=== PATIENT | female | born 2000 | race Caucasian/White ===

== ENCOUNTER 2020-11-22 12:48 | Emergency (ER) | payer OTHER, SELFPAY | END 2020-11-22 14:18 | disposition left against medical advice (07) | LOC: HO.ED 14:13 | PROVIDERS: Emergency Provider Emergency Medicine | DX: R22.1 Localized swelling, mass and lump, neck (principal) ==

== ENCOUNTER 2020-12-24 10:35 | Emergency (ER) | payer OTHER, SELFPAY ==
--- NOTE | ~2020-12-24 | US_ITS ---
EXAMINATION: US OBSTETRICAL ULTRASOUND CLINICAL INFORMATION: Early 4-6 weeks with pelvic pain and spotting. COMPARISON: None. LMP: 11/15/2020. Gestational age by maternal dates is 5 weeks 4 days. Estimated date of delivery by maternal dates is 08/22/2021. TECHNIQUE: Ultrasound of the maternal pelvis is performed using transabdominal and transvaginal transducers. Transvaginal imaging is performed due to inadequate visualization transabdominally. M-mode Doppler is also performed. FINDINGS: There is a single intrauterine gestational sac. There is no yolk sac or pole demonstrated at this time. No subchorionic hemorrhage or hematoma. The average sac dimension is 0.8 cm (5 weeks 3 days size). MATERNAL ADNEXA: The right maternal ovary measures 4.4 x 2.5 x 2.9 cm. There is an intraovarian corpus luteum cyst measuring 2.2 x 1.4 x 1.9 cm with some scattered avascular internal stranding. There is lobulated contour to the ovary opposite the corpus luteum. The ovarian parenchyma appears normal with scattered normal follicles and no solid mass. The left maternal ovary measures 2.5 x 2.0 x 2.4 cm. There is trace fluid cul-de-sac. No pelvic ascites. US/US OB pelvic and transvaginal IMPRESSION: 1. Single intrauterine gestational sac, 0.8 cm average dimension (5 weeks 3 days). 2. No visible yolk sac or embryo at this time. No subchorionic hemorrhage. 3. Small right ovarian corpus luteum 2 cm. 4. Trace fluid cul-de-sac. Otherwise, no ascites.
[2020-12-24 11:21] VITALS: BP 115/62; PULSE 70; RESP 16; TEMP 36.4; O2SAT 100; BMI 29.2
[2020-12-24 11:37] LABS: Glucose Urine UA NEG (NEG); Leukocyte Esterase Urine NEG (NEG); Nitrite Urine NEG (NEG); PH 5.5 (5.0-8.0); Specific Gravity - Urine 1.025 (1.005-1.025); Urine Blood NEG (NEG); Urine Ketones NEG (NEG); Urine Protein NEG (NEG-TRACE)
[2020-12-24 11:39] LABS: Appearance Urine CLEAR; Color Urine YELLOW; UPreg QC Valid YES; Urine Pregnancy POSITIVE (NEGATIVE)
--- NOTE | 2020-12-24 11:48 | ED.PREGNANCY ---
HPI - General Chief complaint: Vaginal Bleeding Stated complaint: cramps, spotting, Time Seen by Provider: 12/24/20 11:47 Source: patient Mode of arrival: ambulatory Limitations: no limitations History of Present Illness HPI Narrative: G1 D = LMP 4/2 comes in with weekly positive recent test noted some lower abdominal cramping and spotting no sig pad use, no clots Complaint: vaginal bleeding Onset (ago): hour(s) (today 3am) Pain Consistency: intermittent Location: pelvis Severity: mild Quality: Cramping Relieving factors: none Exacerbating factors: none Associated symptoms: vaginal bleeding (scant spotting) Vaginal bleeding: light Related Data Allergies Allergy/AdvReac Type Severity Reaction Status Date / Time No Known Allergies Allergy Unverified 05/02/20 16:37 Review of Systems Review of Systems: Constitutional : No Fever, No Chills ENT/Mouth : No sore throat, No Rhinorrhea Eyes: No Eye Pain, No Redness Cardiovascular : No Chest Pain, No SOB Respiratory : No Cough, No Sputum, No Wheezing Gastrointestinal : no Nausea, No Vomiting, No Diarrhea, positive abdominal pain, Genitourinary : positive irregular bleeding, No Dysuria, No Urinary Frequency, positive pelvic pain Musculoskeletal : No Myalgias Skin : No rash Neuro : No Weakness, No Headache Psych : No Anxiety/Panic, No Depression Heme/Lymph: No bruising, No Lymphadenopathy Endocrine : No Polyuria, No Polydipsia All other systems reviewed and are negative [facility] Past Medical History Attestation statement: The following information was validated with the patient. Medical History No known health problems Social History Social History (Updated 12/24/20 @ 12:10 by Leilani Hernandez DO) Alcohol intake: never Smoking Status: Never smoker Use of substances other than those prescribed or required for medical reasons: No Advance Directives: No Advance Directives Information Provided: No Patient : Yes Physical Exam Vital Signs: Vital Signs: Last Vital Signs Temp 97.6 F 12/24/20 11:21 Pulse 81 12/24/20 12:15 Resp 16 12/24/20 12:15 BP 116/64 12/24/20 12:15 Pulse Ox 99 12/24/20 12:15 Body Mass Index 29.2 Appearance: Alert. Oriented X3. No acute distress. Eyes: Pupils equal, round and reactive to light. ENT: Pharynx normal. Neck: Normal inspection. Neck supple. CVS: Normal heart rate and rhythm. Pulses normal. Respiratory: No respiratory distress. Breath sounds normal. Abdomen: Soft and mild suprapubic ttp : os closed no sig bleeding noted Skin: Skin warm and dry. Normal skin color. Normal skin turgor. Extremities: No lower extremity edema. No calf ttp Neuro: Oriented X 3. No motor deficit. No sensory deficit. Course Course Course Narrative: Rh positive, IUP, H/H stable, quant stable will refer her to OB and repeat studies in 2 days, pelvic rest MDM - OB/Uterine Contractions MDM Narrative Medical decision making narrative: 20 yo female G1 D=LMP 4/2 here with spotting and cramping will need UA, STI swabs, hcg and RH status - possible US pending to r/o ectopic, dispo per results and findings. Lab Data Result diagrams: 12/24/20 12:10 12/24/20 12:10 Labs: Lab Results 12/24/20 12/24/20 12/24/20 Range/Units 11:28 11:28 12:10 WBC 10.2 (4.8-10.8) X10*3/uL RBC 4.36 (4.20-5.50) X10*6/uL Hgb 13.3 (12.0-16.0) g/dl Hct 40.1 (37-47) % MCV 92.0 (80-98) fL MCH 30.5 (27.0-33.0) pg MCHC 33.2 (31.0-35.0) g/dl RDW 12.6 (11.0-16.0) % Plt Count 312 (160-400) X10*3/uL MPV 10.0 (9.4-12.3) fL Immature Gran % (Auto) 0.2 (0.0-0.4) % Neut % (Auto) 72.2 (45-73) % Lymph % (Auto) 18.2 L (20-40) % [place] % (Auto) 8.3 (2-11) % Eos % (Auto) 0.8 (0-4) % Baso % (Auto) 0.3 (0-2) % Lymph # (Auto) 1.9 (1.2-4.9) X10*3/uL [place] # (Auto) 0.9 (0.1-1.2) X10*3/uL Eos # (Auto) 0.1 (0.0-0.4) X10*3/uL Baso # (Auto) 0.0 (0.0-0.2) X10*3/uL Abs Immat Gran (auto) 0.02 (0.00-0.03) X10*3/uL Absolute Neuts (auto) 7.4 (2.0-8.3) X10*3/uL Absolute Nucleated RBC 0.000 (0.0-0.012) X10*3/uL Nucleated RBC % (auto) 0.0 (0.0-0.2) /100WBC Hold Blue Top Sodium (135-145) mmol/L Potassium (3.3-5.1) mmol/L Chloride (96-108) mmol/L Carbon Dioxide (22-29) mmol/L Anion Gap (12-20) BUN (9-16) mg/dL Creatinine (0.5-1.4) mg/dL Estim Creat Clear Calc Estimated GFR Random Glucose (60-115) mg/dL Calcium (8.4-10.2) mg/dL Beta HCG, Quant mIU/mL Urine Color YELLOW Urine Appearance CLEAR Urine pH 5.5 (5.0-8.0) Ur Specific [place] 1.025 (1.005-1.025) Urine Protein NEG (NEG-TRACE) MG/DL Urine Glucose (UA) NEG (NEG) MG/DL Urine Ketones NEG (NEG) MG/DL Urine Blood NEG (NEG) Urine Nitrite NEG (NEG) Ur Leukocyte Esterase NEG (NEG) Urine Test POSITIVE H (NEGATIVE) Blood Type 12/24/20 12/24/20 12/24/20 Range/Units 12:10 12:10 12:10 WBC (4.8-10.8) X10*3/uL RBC (4.20-5.50) X10*6/uL Hgb (12.0-16.0) g/dl Hct (37-47) % MCV (80-98) fL MCH (27.0-33.0) pg MCHC (31.0-35.0) g/dl RDW (11.0-16.0) % Plt Count (160-400) X10*3/uL MPV (9.4-12.3) fL Immature Gran % (Auto) (0.0-0.4) % Neut % (Auto) (45-73) % Lymph % (Auto) (20-40) % [place] % (Auto) (2-11) % Eos % (Auto) (0-4) % Baso % (Auto) (0-2) % Lymph # (Auto) (1.2-4.9) X10*3/uL [place] # (Auto) (0.1-1.2) X10*3/uL Eos # (Auto) (0.0-0.4) X10*3/uL Baso # (Auto) (0.0-0.2) X10*3/uL Abs Immat Gran (auto) (0.00-0.03) X10*3/uL Absolute Neuts (auto) (2.0-8.3) X10*3/uL Absolute Nucleated RBC (0.0-0.012) X10*3/uL Nucleated RBC % (auto) (0.0-0.2) /100WBC Hold Blue Top SEE NOTE Sodium 139 (135-145) mmol/L Potassium 4.0 (3.3-5.1) mmol/L Chloride 108 (96-108) mmol/L Carbon Dioxide 24 (22-29) mmol/L Anion Gap 11 L (12-20) BUN 8 L (9-16) mg/dL Creatinine 0.70 (0.5-1.4) mg/dL Estim Creat Clear Calc 113.0 Estimated GFR > 60 Random Glucose 79 (60-115) mg/dL Calcium 9.7 (8.4-10.2) mg/dL Beta HCG, Quant 7294 mIU/mL Urine Color Urine Appearance Urine pH (5.0-8.0) Ur Specific [place] (1.005-1.025) Urine Protein (NEG-TRACE) MG/DL Urine Glucose (UA) (NEG) MG/DL Urine Ketones (NEG) MG/DL Urine Blood (NEG) Urine Nitrite (NEG) Ur Leukocyte Esterase (NEG) Urine Test (NEGATIVE) Blood Type A Positive Discharge Plan Discharge Clinical Impression: Threatened Patient Disposition: Home, Self-Care Instructions: Threatened Miscarriage (ED) Additional Instructions: return to ED for any worsening symptoms or concerns repeat hcq in 2 days, blood test with OB, no sexual intercourse x 1 week Referrals: Kendra Shell MD [Physician] - 2 days Stand Alone Forms: Work/School Release
[2020-12-24] MEDS: Acetaminophen 325 MG TABLET 650 MG PO (12:07)
[2020-12-24 12:15] VITALS: BP 116/64; PULSE 81; RESP 16; O2SAT 99
[2020-12-24 12:24] LABS: MANUAL DIFF FLAG NO
[2020-12-24 12:28] LABS: Basophils Percent Auto 0.3 % (0-2); Eosinophils Absolute Auto 0.1 X10*3/uL (0.0-0.4); Eosinophils Percent Auto 0.8 % (0-4); Hematocrit 40.1 % (37-47); Hemoglobin 13.3 g/dl (12.0-16.0); Imm Gran Abs Auto 0.02 X10*3/uL (0.00-0.03); Imm Gran Pct Auto 0.2 % (0.0-0.4); Lymphocytes Absolute Auto 1.9 X10*3/uL (1.2-4.9); Lymphocytes Percent Auto 18.2 % (20-40); Mean Corpuscular HGB Conc 33.2 g/dl (31.0-35.0); Mean Corpuscular Hemoglobin 30.5 pg (27.0-33.0); Monocytes Absolute Auto 0.9 X10*3/uL (0.1-1.2); Monocytes Percent Auto 8.3 % (2-11); Neutrophils Absolute Auto 7.4 X10*3/uL (2.0-8.3); Neutrophils Percent Auto 72.2 % (45-73); Platelet Count 312 X10*3/uL (160-400); Red Blood Count 4.36 X10*6/uL (4.20-5.50); Red Cell Distribution Width 12.6 % (11.0-16.0); White Blood Count 10.2 X10*3/uL (4.8-10.8)
[2020-12-24 12:47] LABS: Anion Gap 11 (12-20); Blood Urea Nitrogen 8 mg/dL (9-16); Calcium 9.7 mg/dL (8.4-10.2); Carbon Dioxide 24 mmol/L (22-29); Chloride 108 mmol/L (96-108); Estimated Glomerular Filt Rate > 60; Glucose Random 79 mg/dL (60-115); Sodium 139 mmol/L (135-145)
[2020-12-24 12:57] LABS: HCG Quantitative 7294 mIU/mL
[2020-12-24 14:58] LABS: CT PCR NOT DETECTED (Not Detect.); NG PCR NOT DETECTED (Not Detect.)
== END 2020-12-24 14:49 | disposition home or self-care (01) ==
PROVIDERS: Emergency Provider Emergency Medicine
DX: O20.0 Threatened abortion (principal); O34.81 Maternal care for other abnormalities of pelvic organs, first trimester; N83.11 Corpus luteum cyst of right ovary; Z3A.08 8 weeks gestation of pregnancy
CPT/HCPCS: 36415; 76801; 76817; 80048; 81003; 81025; 84702; 85025; 86900; 86901; 87491; 87591; 99284; 99285

== ENCOUNTER 2020-12-27 10:41 | Outpatient (REF) | payer OTHER, SELFPAY ==
--- NOTE | ~2020-12-27 | US_ITS ---
EXAMINATION: OBSTETRICAL ULTRASOUND, FIRST TRIMESTER HISTORY: 20-year-old at 5.3 weeks of gestation Viability LMP: 11/19/2020 COMPARISON: 12/24/2020 TECHNIQUE: Real time transabdominal imaging with color and M-mode Doppler. Transvaginal ultrasound was performed using an endovaginal probe. FINDINGS: Intrauterine gestational sac with the mean sac diameter of 1.3 cm is noted. This corresponds to to 6 weeks 1 day of gestation. A normal-appearing yolk seen. Embryonic pole is not yet visible. This can be consistent with early gestational age. Both maternal ovaries are seen and appear normal. No free fluid in the cul-de-sac. GESTATIONAL AGE: 1. GA from LMP: 5.3 wks 2. GA from AUA: 6.1 wks ESTIMATED DATE OF DELIVERY: 1. MARYSE from LMP: 08/26/2021 2. MARYSE from AUA: 08/21/2021 US/US OB pelvic and transvaginal IMPRESSION: 1. Intrauterine gestational sac with a mean sac diameter corresponding to 6.1 weeks of gestation. Next 2. Normal appearing yolk sac. However no embryonic pole was seen. Thank you very much for this referral.
== END 2020-12-27 10:42 | disposition home or self-care (01) ==
LOC: HO.US 10:41
PROVIDERS: Visit Provider Obstetrics & Gynecology
DX: O20.0 Threatened abortion (principal); Z3A.01 Less than 8 weeks gestation of pregnancy
CPT/HCPCS: 76801; 76817; 99212

== ENCOUNTER 2020-12-27 15:45 | Outpatient (REF) | payer OTHER, SELFPAY ==
[2020-12-28 01:03] LABS: CT PCR NOT DETECTED (Not Detect.); NG PCR NOT DETECTED (Not Detect.)
== END 2020-12-27 15:46 | disposition home or self-care (01) ==
LOC: HO.LAB 15:45
PROVIDERS: Visit Provider Obstetrics & Gynecology
DX: O20.0 Threatened abortion (principal)
CPT/HCPCS: 87491; 87591

== ENCOUNTER 2021-01-17 10:10 | Outpatient (REF) | payer OTHER, SELFPAY ==
--- NOTE | ~2021-01-17 | US_ITS ---
EXAMINATION: OBSTETRICAL ULTRASOUND, FIRST TRIMESTER HISTORY: 21-year-old at the approximately 8.3 weeks of gestation Threatened AB LMP: 11/19/2020 COMPARISON: 12/27/2020 TECHNIQUE: Real time transabdominal imaging with color and M-mode Doppler. FINDINGS: A single, live IUP CRL of 21.6 mm c/w 8.6wks is noted. Heart Rate: 172 beats per minute. Both maternal ovaries are seen and appear normal. GESTATIONAL AGE: 1. GA from LMP: 8.3 wks 2. GA from AUA: 8.6 wks ESTIMATED DATE OF DELIVERY: 1. MARYSE from LMP: 08/26/2021 2. MARYSE from AUA: 08/23/2021 US/US OB <= 14 weeks fetus IMPRESSION: 1. A single live IUP 2. CRL confirms her LMP gestational age of 8.3 weeks. The best MARYSE appears to be 08/26/2021. 3. No sonographic evidence of subchorionic hematoma. Discussion: No specific ultrasound followup appears needed at this time. The patient was advised that ultrasound cannot guarantee the of a normal infant. Thank you very much for this referral. This note was generated with a voice recognition program. Please excuse any errors which may have been overlooked during my review of this note. Sometimes these errors may affect the content or meaning of a given sentence.
== END 2021-01-17 10:11 | disposition home or self-care (01) ==
LOC: HO.US 10:10
PROVIDERS: Visit Provider Obstetrics & Gynecology
DX: O20.0 Threatened abortion (principal)
CPT/HCPCS: 76801

== ENCOUNTER → 2021-01-20 11:25 | Outpatient (BNVA) | payer OTHER, SELFPAY | PROVIDERS: Visit Provider Obstetrics & Gynecology ==

== ENCOUNTER 2022-01-31 19:52 | Emergency (ER) | payer OTHER, SELFPAY ==
[2022-01-31 19:53] VITALS: BP 134/70; PULSE 115; RESP 20; TEMP 36.9; O2SAT 97; BMI 29.2
--- NOTE | 2022-01-31 23:12 | ED_ITS ---
HPI - General Adult General Chief complaint: General Medical Stated complaint: discharge, yeast infection Time Seen by Provider: 01/31/22 23:01 Source: patient Mode of arrival: ambulatory Limitations: no limitations History of Present Illness HPI narrative: This a 22-year-old female here with 1 week of thick white vaginal discharge. Patient has no pelvic pain, vomiting, fevers, urinary symptoms. Patient has his tory of yeast infection and states this feels similar. She would like to be tested for STDs however Related Data Home Medications Medication Instructions Recorded Confirmed vitamin with calcium 1 tab PO DAILY 01/20/21 no.72-iron 27 mg-folic acid 1 mg tablet Previous Rx's Medication Instructions Recorded fluconazole 150 mg tablet 150 mg PO Q3D 2 doses #2 tabs 02/01/22 (Diflucan) Allergies Allergy/AdvReac Type Severity Reaction Status Date / Time No Known Allergies Allergy Verified 01/31/22 20:03 Review of Systems Review of Systems: Yes all other systems are reviewed and are negative Constitutional: Constitutional: Reports no additional constitutional complaints, Denies body ache(s), Denies chills, Denies fever(s), Denies headache(s) and Denies weakness Eyes: Eyes: Reports no additional eye complaints and Denies change in vision ENT: Reports system reviewed and no additional complaints, except as documented, Denies dizziness, Denies headache(s), Denies nasal congestion, Denies nasal discharge and Denies neck pain Cardiovascular: Cardiovascular: Reports no additional cardiovascular complaints, Denies chest pain, Denies leg edema and Denies dyspnea Respiratory: Respiratory: Reports no additional respiratory complaints, Denies cough and Denies dyspnea Gastrointestinal: Gastrointestinal: Reports no additional gastrointestinal complaints, Denies abdominal pain, Denies diarrhea, Denies nausea and Denies vomiting Genitourinary: Genitourinary: Reports no additional female genitourinary complaints, Denies urinary incontinence and Reports vaginal discharge Musculoskeletal: Musculoskeletal: Reports no additional musculoskeletal complaints, Denies back pain, Denies arthralgias, Denies joint swelling, Denies neck pain, Denies numbness and Denies tingling Integumentary/Breasts: Skin/Breast: Reports system reviewed and no additional complaints, except as docu and Denies rash Neurologic: Reports system reviewed and no additional complaints, except as documented, Denies dizziness, Denies headache(s), Denies numbness, Denies tingling and Denies weakness PMFSH Past Medical History Attestation statement: The following information was validated with the patient. Source: old records reviewed and nursing notes reviewed Medical History No known health problems Social History Social History Alcohol intake: never Advance Directives: No Advance Directives Information Provided: Yes Physical Exam ED Vital Signs: Vital Signs - 24 hr 01/31/22 19:53 Temperature 98.4 F Pulse Rate 115 H Respiratory Rate 20 Blood Pressure 134/70 Pulse Oximetry 97 Oxygen Delivery Method Room Air BMI result Body Mass Index 29.2 Const General: cooperative, healthy appearing, comfortable and no acute distress Orientation/consciousness: patient oriented x3 Limitations: no limitations HENMT Head: Yes normal to inspection Ears: hearing grossly normal bilaterally Eyes General: appearance normal, both eyes and all related structures Pupils: Equal, round and reactive pupils present Neck Neck: Yes normal visual inspection Chest Chest palpation & inspection: normal inspection of the chest Resp Effort & Inspection: normal respiratory effort Skin General skin exam: no rashes or lesions noted Neuro General: patient oriented x3 and moves all extremities Cranial nerves: Yes Equal, round and reactive pupils present Cognition (Neuro): normal cognition Course Course Course Narrative: UA shows no signs of infection. Additional testing is pending. Will treat patient for Maru. She declined a pelvic exam. Reviewed worrisome signs and symptoms of when to return to the emergency department. Comfortable discharge home. Medical Decision Making [facility] Narrative Medical decision making narrative: 22-year-old female here with vaginal discharge for 1 week with a history of yeast infections and states this feels similar. Would like STD testing. Will check UA, urine , bacterial vaginosis panel, CT NG Medical Records Medical records reviewed: Yes I reviewed the patient's medical records. Lab Data Lab results reviewed: Yes I reviewed the patient's lab results. Labs: Lab Results 01/31/22 01/31/22 Range/Units 23:51 23:51 Urine Color DK YELLOW Urine Appearance HAZY Urine pH 5.5 (5.0-8.0) Ur Specific [place] >= 1.030 H (1.005-1.025) Urine Protein 1+ H (NEG-TRACE) MG/DL Urine Glucose (UA) NEG (NEG) MG/DL Urine Ketones 15 (NEG) MG/DL Urine Blood NEG (NEG) Urine Nitrite NEG (NEG) Ur Leukocyte Esterase NEG (NEG) Urine RBC 0-2 (0) /HPF Urine WBC 0 (0-4) /HPF Ur Squamous Epith Cells 1+ /LPF Urine Bacteria 1+ /LPF Urine Mucus 4+ /LPF Urine Test NEGATIVE (NEGATIVE) Discharge Plan Discharge Clinical Impression: Yeast infection Patient Disposition: Home, Self-Care Instructions: Yeast Infection (ED) Prescriptions: New fluconazole [Diflucan] 150 mg tablet 150 mg PO Q3D Qty: 2 0RF Rx Instructions: may repeat second dose 72 hrs after first dose if symptoms persist No Action Vitamin Plus Low Iron 27 mg iron- 1 mg tablet 1 tab PO DAILY Referrals: Physician,Aracelis J [Primary Care Provider] - Discharge Date/Time: 02/01/22 00:24
[2022-01-31 23:57] LABS: Appearance Urine HAZY; Color Urine DK YELLOW; Glucose Urine UA NEG (NEG); Leukocyte Esterase Urine NEG (NEG); Nitrite Urine NEG (NEG); PH 5.5 (5.0-8.0); Specific Gravity - Urine >= 1.030 (1.005-1.025); UACC Culture Trigger NO; Urine Blood NEG (NEG); Urine Ketones 15 MG/DL (NEG); Urine Protein 1+ MG/DL (NEG-TRACE)
[2022-02-01 00:03] LABS: UPreg QC Valid YES; Urine Pregnancy NEGATIVE (NEGATIVE)
[2022-02-01 00:16] LABS: Bacteria Urine 1+ /LPF; Mucus Urine 4+ /LPF; RBC Urine 0-2 /HPF (0); Squamous Epithelial Cell Urine 1+ /LPF; WBC Urine 0 /HPF (0-4)
[2022-02-01 10:33] LABS: CT PCR DETECTED (Not Detect.); NG PCR DETECTED (Not Detect.)
[2022-02-01 11:59] LABS: BV Int Neg Control Negative (Negative); BV Int Pos Control Positive (Positive)
== END 2022-02-01 00:24 | disposition home or self-care (01) ==
PROVIDERS: Nurse Practitioner Family; Emergency Provider Emergency Medicine
DX: B37.9 Candidiasis, unspecified (principal); N89.8 Other specified noninflammatory disorders of vagina; Z79.899 Other long term (current) drug therapy
CPT/HCPCS: 81001; 81025; 87480; 87491; 87510; 87591; 87660; 99282; 99283

== ENCOUNTER 2022-02-04 09:32 | Emergency (ER) | payer OTHER, SELFPAY ==
[2022-02-04 09:50] VITALS: BP 112/44; PULSE 70; RESP 20; TEMP 36.5; O2SAT 98; BMI 30.2
--- NOTE | 2022-02-04 10:04 | ED_ITS ---
HPI - Recheck/Abnormal Lab/Rx General Chief Complaint: Recheck/Abnormal Lab/Rx Stated Complaint: STD Called by [facility] to come here Time Seen by Provider: 02/04/22 09:49 Source: patient Mode of arrival: ambulatory Limitations: no limitations History of Present Illness HPI narrative: 22-year-old female who was seen here on February 01. At that time there was concern for vaginitis with thick white vaginal discharge. She was also tested for STDs. She was not treated at that time for STDs. She was treated with Diflucan for vaginitis. She returns today as she is positive for both gonorrhea and chlamydia and needs treatment. She denies any fever, pelvic pain, vomiting. She is sexually active with 1 male partner. Related Data Home Medications Medication Instructions Recorded Confirmed vitamin with calcium 1 tab PO DAILY 01/20/21 no.72-iron 27 mg-folic acid 1 mg tablet Previous Rx's Medication Instructions Recorded fluconazole 150 mg tablet 150 mg PO Q3D 2 doses #2 tabs 02/01/22 (Diflucan) doxycycline monohydrate 100 mg 100 mg PO BID #14 tabs 02/04/22 tablet Allergies Allergy/AdvReac Type Severity Reaction Status Date / Time No Known Allergies Allergy Verified 01/31/22 20:03 Review of Systems Review of Systems: Yes all other systems are reviewed and are negative Constitutional: Constitutional: Reports no additional constitutional complaints, Denies body ache(s), Denies chills, Denies fever(s), Denies headache(s) and Denies weakness Eyes: Eyes: Reports no additional eye complaints and Denies change in vision ENT: Reports system reviewed and no additional complaints, except as documented, Denies dizziness, Denies headache(s), Denies nasal congestion, Denies nasal discharge and Denies neck pain Cardiovascular: Cardiovascular: Reports no additional cardiovascular complaints, Denies chest pain, Denies leg edema and Denies dyspnea Respiratory: Respiratory: Reports no additional respiratory complaints, Denies cough and Denies dyspnea Gastrointestinal: Gastrointestinal: Reports no additional gastrointestinal complaints, Denies abdominal pain, Denies diarrhea, Denies nausea and Denies vomiting Genitourinary: Genitourinary: Reports no additional female genitourinary complaints, Denies urinary incontinence and Reports vaginal discharge Musculoskeletal: Musculoskeletal: Reports no additional musculoskeletal complaints, Denies back pain, Denies arthralgias, Denies joint swelling, Denies neck pain, Denies numbness and Denies tingling Integumentary/Breasts: Skin/Breast: Reports system reviewed and no additional complaints, except as docu and Denies rash Neurologic: Reports system reviewed and no additional complaints, except as documented, Denies Abnormal speech present, Denies dizziness, Denies headache(s), Denies numbness, Denies tingling and Denies weakness PMF Past Medical History Attestation statement: The following information was validated with the patient. Source: old records reviewed and nursing notes reviewed Medical History No known health problems Social History Social History Alcohol intake: never Advance Directives: No Advance Directives Information Provided: Yes Physical Exam Vital Signs: Vital Signs: Last Vital Signs Temp 97.7 F 02/04/22 09:50 Pulse 70 02/04/22 09:50 Resp 20 02/04/22 09:50 BP 112/44 L 02/04/22 09:50 Pulse Ox 98 02/04/22 09:50 O2 Del Method 02/04/22 09:50 BMI result Body Mass Index 30.2 Const: General: cooperative, healthy appearing, comfortable and no acute distress Orientation/consciousness: patient oriented x3 Limitations: no limitations HEENT: Head: Yes normal to inspection Ears: hearing grossly normal bilaterally General nose exam: Normal external nose present Face and sinus: Yes normal facial exam Mouth: Normal oral and palatal mucosa present Throat: Yes posterior oropharynx normal Eyes: General: appearance normal, both eyes and all related structures Pupils: Equal, round and reactive pupils present Neck: Neck: Yes normal visual inspection Chest: Chest palpation & inspection: normal inspection of the chest Resp: Effort & Inspection: normal respiratory effort Auscultation: clear to auscultation bilaterally Cardio: Rate: regular rate Rhythm: regular rhythm Peripheral pulses: Peripheral pulses 2+ throughout GI: Inspection: Yes normal to inspection Palpation (GI): Soft to palpation and nontender Auscultation: normal bowel sounds Back/Spine/Pelvis: Thoracic/Lumbar Spine: thoracic and lumbar spine normal to inspection Skin: General skin exam: no rashes or lesions noted Neuro: General: patient oriented x3, no focal motor deficits and normal sensation to monofilament Cranial nerves: Yes Equal, round and reactive pupils present Cognition (Neuro): normal cognition Speech: No Abnormal speech present Gait exam (Neuro): Normal gait present Motor exam (neuro): 5/5 motor strength present throughout Extrem: General: Yes normal to inspection Course Course Course Narrative: Patient received ceftriaxone 500 mg IM while she was in the emergency department. Will send home with doxycycline for 7 days. Recommended retesting in 7 days after treatment for resolution. The state form was faxed for gonorrhea. Patient was informed to notify her sexual partners. Reviewed worrisome signs and symptoms of when to return to the emergency department. Comfortable discharge home. MDM - Recheck/Abnormal Lab/Rx MDM Narrative Medical decision making narrative: 22-year-old female here with known positive culture for gonorrhea and chlamydia seeking testing. She has complaints of vaginal discharge but no other complaints. Patient will be given ceftriaxone 500 mg IM and sent home with course of doxycycline. Low concern for PID or TOA with no reports of pelvic pain or fever She is aware that her partner needs to also be tested and treated Medical Records Attestation: I reviewed the patient's medical records. Lab Data Attestation: I reviewed the patient's lab results. Discharge Plan Discharge Clinical Impression: Gonorrhea, Chlamydia Patient Disposition: Home, Self-Care Instructions: Sexually Transmitted Diseases (ED), Gonorrhea (ED) Additional Instructions: You are were positive for both gonorrhea and chlamydia. You were treated prophylactically with an injection while you are here in the emergency department. We also also sending you home with a course of antibiotics. You should follow-up with [facility] after you complete the course of antibiotics to have your urine retested. You should inform all sexual partners that they may also be treated and tested Use condoms until completion of antibiotics and being retested Prescriptions: New doxycycline monohydrate 100 mg tablet 100 mg PO BID Qty: 14 0RF No Action fluconazole [Diflucan] 150 mg tablet 150 mg PO Q3D Qty: 2 0RF Rx Instructions: may repeat second dose 72 hrs after first dose if symptoms persist Vitamin Plus Low Iron 27 mg iron- 1 mg tablet 1 tab PO DAILY Referrals: Physician,None [Primary Care Provider] - Interventions: ED Discharge Assessment Last Done: 02/04/22 10:45 Discharge Date/Time: 02/04/22 10:48
[2022-02-04] MEDS: cefTRIAXone sodium 500 MG, Lidocaine HCl 1 % MPF 1 ML IM (10:10)
== END 2022-02-04 10:48 | disposition home or self-care (01) ==
PROVIDERS: Emergency Provider Emergency Medicine
DX: A54.9 Gonococcal infection, unspecified (principal); A74.9 Chlamydial infection, unspecified; R79.89 Other specified abnormal findings of blood chemistry; N76.0 Acute vaginitis; Z79.899 Other long term (current) drug therapy
CPT/HCPCS: 96372; 99283; 99284; J0696

== ENCOUNTER 2022-03-14 19:44 | Emergency (ER) | payer OTHER, SELFPAY ==
--- NOTE | ~2022-03-14 | CT_ITS ---
EXAMINATION: CT ABDOMEN AND PELVIS WITHOUT CONTRAST CLINICAL INFORMATION: Lower abdominal pain COMPARISON: None TECHNIQUE: Multidetector volumetric imaging was performed from the superior aspect of the liver through the pubic symphysis. Sagittal and coronal reformatted images were obtained on the technologist's workstation. This CT examination was performed using dose optimization techniques as appropriate, variously including the following: *Automated exposure control *Adjustment of mA and/or kV according to patient size (this includes techniques or standardized protocols for targeted exams where dose is matched to indication/reason for exam; i.e. extremities or head) *Use of iterative reconstruction technique DLP: 470 mGy-cm FINDINGS: LUNG BASES: The visualized lung bases are unremarkable. LIVER, GALLBLADDER, AND BILIARY TREE: The liver is normal in size, shape, and attenuation. No focal hepatic lesion or biliary ductal dilatation is present. Gallbladder unremarkable. PANCREAS: Unremarkable. SPLEEN: Unremarkable. ADRENAL GLANDS: Unremarkable. KIDNEYS AND URETERS: The kidneys are normal in size, shape, and attenuation. No hydronephrosis, hydroureter, or calculi seen. No perinephric stranding. BLADDER: Unremarkable. GASTROINTESTINAL TRACT: The small and large bowel are unremarkable. The appendix is unremarkable. ABDOMINAL WALL: No significant hernia is appreciated. LYMPH NODES: Normal. VASCULAR: Unremarkable. PELVIC VISCERA: Scar present along the anterior lower uterine segment is to previous section. The uterus and ovaries otherwise unremarkable. OSSEOUS STRUCTURES: Unremarkable. CT/CT abdomen pelvis wo con IMPRESSION: No acute findings within the pelvis to explain the patient's symptomatology.
[2022-03-14 19:47] VITALS: BP 129/60; PULSE 81; RESP 18; TEMP 36.8; O2SAT 98; BMI 30.6
[2022-03-14 20:09] LABS: Appearance Urine CLEAR; Color Urine YELLOW; Glucose Urine UA NEG (NEG); Leukocyte Esterase Urine NEG (NEG); Nitrite Urine NEG (NEG); PH 5.5 (5.0-8.0); Specific Gravity - Urine >= 1.030 (1.005-1.025); Urine Blood NEG (NEG); Urine Ketones NEG (NEG); Urine Protein TRACE MG/DL (NEG-TRACE)
[2022-03-14 20:24] LABS: Bacteria Urine TRACE /LPF; RBC Urine 0 /HPF (0); Squamous Epithelial Cell Urine 1+ /LPF; WBC Urine 0 /HPF (0-4)
--- NOTE | 2022-03-14 22:10 | ED_ITS ---
HPI - General Adult General Chief complaint: General Medical Stated complaint: Cramping/STD check Time Seen by Provider: 03/14/22 22:03 Source: patient Mode of arrival: ambulatory Limitations: no limitations History of Present Illness HPI narrative: 22-year-old female recently diagnosed with gonorrhea, chlamydia in [facility] presenting to the emergency department with vaginal discharge, abdominal pain since March 08. Patient tells me she was treated with antibiotics completed the course however, she had intercourse with the same person that gave her these STDs, she tells me her partner did not receive at treatment for her STDs. She reports some intermittent nausea. She describes her vaginal discharge is watery yellow discharge. Denies any pain with intercourse. She reports the abdominal pain is diffuse abdominal pain with cramping worse in lower quadrants. It is intermittent in nature. She denies fevers, chills, chest pain, shortness of breath, vomiting, changes in bowel habits and changes in urination. Patient would like prophylactic treatment for STDs today. Onset (ago): day(s) () Related Data Home Medications Medication Instructions Recorded Confirmed vitamin with calcium 1 tab PO DAILY 01/20/21 no.72-iron 27 mg-folic acid 1 mg tablet Previous Rx's Medication Instructions Recorded fluconazole 150 mg tablet 150 mg PO Q3D 2 doses #2 tabs 02/01/22 (Diflucan) doxycycline monohydrate 100 mg 100 mg PO BID #14 tabs 02/04/22 tablet doxycycline hyclate 100 mg capsule 100 mg PO BID 10 days #20 caps 03/14/22 metronidazole 500 mg tablet 500 mg PO BID 7 days #14 tabs 03/14/22 Allergies Allergy/AdvReac Type Severity Reaction Status Date / Time No Known Allergies Allergy Verified 03/14/22 19:47 Review of Systems Review of Systems: Constitutional : No Weight loss, No Fever, No Chills, No Fatigue, No Malaise ENT/Mouth : No sore throat, No Rhinorrhea Eyes: No Eye Pain, No Swelling, No Redness Cardiovascular : No Chest Pain, No SOB, No Dyspnea on Exertion, No Orthopnea, No Edema, No Palpitations Respiratory : No Cough, No Sputum, No Wheezing Gastrointestinal : + Nausea, No Vomiting, No Diarrhea, No Constipation, + abdominal Pain, No Hematochezia, No Melena Genitourinary : No Dysuria, No Urinary Frequency, No Hematuria, + vaginal dc Musculoskeletal : No joint pain, No Myalgias, No Joint Swelling Skin : No Skin Lesions, No rash Neuro : No Weakness, No Numbness, No Dizziness, No Headache All other systems reviewed and are negative Yes all other systems are reviewed and are negative [facility] Past Medical History Medical History No known health problems Social History Social History Alcohol intake: never Advance Directives: No Advance Directives Information Provided: No Physical Exam ED Vital Signs: Vital Signs - 24 hr 03/14/22 19:47 Temperature 98.2 F Pulse Rate 81 Respiratory Rate 18 Blood Pressure 129/60 Pulse Oximetry 98 Oxygen Delivery Method Room Air BMI result Body Mass Index 30.6 vss Appearance: Alert.? Oriented X3.? No acute distress.? Head: Normocephalic, atraumatic, no step-offs or deformities Eyes: Pupils equal, round and reactive to light.? CVS: Normal heart rate and rhythm.? Pulses normal.? Respiratory: No respiratory distress.? Breath sounds normal.? Abdomen: Soft and diffusely tender.? Skin: Skin warm and dry.? Normal skin color.? Normal skin turgor.? Extremities: No lower extremity edema.? No calf ttp. 5/5 strength to bilateral upper and lower extremities Sensative:deffered Back: No CVA tenderness bilaterally Neuro: Oriented X 3.? No motor deficit.? No sensory deficit. CN 2-12 intact Course Reevaluation(s) Reevaluation #1: CBC with slight leukocytosis. Demonstrate no acute electrolyte abnormalities requiring intervention. Serum HCG negative. UA without infection. Gonorrhea and chlamydia sent for further evaluation. CT of the abdomen and pelvis pending. Sign out given to Dr. Hernandez. Event CT of the abdomen and pelvis is negative patient can be discharged home. Treatment for STDs with sent to her pharmacy. Patient was educated on diagnosis and treatment plan. Time: 01:32 Medical Decision Making [facility] Narrative Medical decision making narrative: [id number] 22-year-old female presenting with concerns of STDs in abdominal cramping as well as vaginal discharge x6 days. Physical examination with diffuse abdominal tenderness. Patient has known STD exposure. Significant other was positive for gonorrhea, chlamydia and did not receive treatment therefore high probability that patient again has gonorrhea and chlamydia. Patient recently received treatment for gonorrhea and chlamydia which she completed about a week ago. Concerns for PID. No point tenderness to palpation of abdomen, unlikely appendicitis, cholecystitis or diverticulitis. Patient agrees to prophylactic treatment for gonorrhea, chlamydia and trichomonas. 500mg IM ceftriaxone has been given here and scripts for doxycycline 100 mg po BID X 7 days and metronidazole 500 mg po BID X 7 days have been given to the patient. Educated on safe sex practices, full pannel STD t esting and speaking to? partners on possible STD. Plan at this time is to obtain it urine, gonorrhea, chlamydia. Will obtain a CT of the abdomen and pelvis. Medical Records Medical records reviewed: Yes I reviewed the patient's medical records. Lab Data Lab results reviewed: Yes I reviewed the patient's lab results. Result diagrams: 03/14/22 23:57 03/14/22 23:57 Labs: Lab Results 03/14/22 03/14/22 03/14/22 Range/Units 19:58 23:57 23:57 WBC 13.4 H (4.8-10.8) X10*3/uL RBC 4.67 (4.20-5.50) X10*6/uL Hgb 13.6 (12.0-16.0) g/dl Hct 41.5 (37.0-47.0) % MCV 88.9 (80.0-98.0) fL MCH 29.1 (27.0-33.0) pg MCHC 32.8 (31.0-35.0) g/dl RDW 13.3 (11.0-16.0) % Plt Count 347 (160-400) X10*3/uL MPV 9.8 (9.4-12.3) fL Immature Gran % (Auto) 0.3 (0.0-0.4) % Neut % (Auto) 68.0 (45-73) % Lymph % (Auto) 22.9 (20-40) % [place] % (Auto) 7.4 (2-11) % Eos % (Auto) 1.3 (0-4) % Baso % (Auto) 0.1 (0-2) % Lymph # (Auto) 3.1 (1.2-4.9) X10*3/uL [place] # (Auto) 1.0 (0.1-1.2) X10*3/uL Eos # (Auto) 0.2 (0.0-0.4) X10*3/uL Baso # (Auto) 0.0 (0.0-0.2) X10*3/uL Abs Immat Gran (auto) 0.04 H (0.00-0.03) X10*3/uL Absolute Neuts (auto) 9.1 H (2.0-8.3) x10*3/uL Absolute Nucleated RBC 0.000 (0.0-0.012) X10*3/uL Nucleated RBC % (auto) 0.0 (0.0-0.2) /100WBC Sodium 139 (135-145) mmol/L Potassium 4.1 (3.3-5.1) mmol/L Chloride 105 (96-108) mmol/L Carbon Dioxide 24 (22-29) mmol/L Anion Gap 14 (12-20) BUN 15 (9-16) mg/dL Creatinine 0.71 (0.5-1.4) mg/dL Estim Creat Clear Calc 111.9 Estimated GFR > 60 Random Glucose 78 (60-115) mg/dL Calcium 9.5 (8.4-10.2) mg/dL Total Bilirubin 0.4 (0.0-1.0) mg/dL AST 12 (5-31) U/L ALT 10 (0-31) U/L Alkaline Phosphatase 66 (39-117) U/L Total Protein 7.5 (6.5-8.0) g/dL Albumin 4.7 (3.5-5.0) g/dL Lipase 41 (8-78) U/L Beta HCG, Quant mIU/mL Urine Color YELLOW Urine Appearance CLEAR Urine pH 5.5 (5.0-8.0) Ur Specific [place] >= 1.030 H (1.005-1.025) Urine Protein TRACE (NEG-TRACE) MG/DL Urine Glucose (UA) NEG (NEG) MG/DL Urine Ketones NEG (NEG) MG/DL Urine Blood NEG (NEG) Urine Nitrite NEG (NEG) Ur Leukocyte Esterase NEG (NEG) Urine RBC 0 (0) /HPF Urine WBC 0 (0-4) /HPF Ur Squamous Epith Cells 1+ /LPF Urine Bacteria TRACE /LPF 03/14/22 Range/Units 23:57 WBC (4.8-10.8) X10*3/uL RBC (4.20-5.50) X10*6/uL Hgb (12.0-16.0) g/dl Hct (37.0-47.0) % MCV (80.0-98.0) fL MCH (27.0-33.0) pg MCHC (31.0-35.0) g/dl RDW (11.0-16.0) % Plt Count (160-400) X10*3/uL MPV (9.4-12.3) fL Immature Gran % (Auto) (0.0-0.4) % Neut % (Auto) (45-73) % Lymph % (Auto) (20-40) % [place] % (Auto) (2-11) % Eos % (Auto) (0-4) % Baso % (Auto) (0-2) % Lymph # (Auto) (1.2-4.9) X10*3/uL [place] # (Auto) (0.1-1.2) X10*3/uL Eos # (Auto) (0.0-0.4) X10*3/uL Baso # (Auto) (0.0-0.2) X10*3/uL Abs Immat Gran (auto) (0.00-0.03) X10*3/uL Absolute Neuts (auto) (2.0-8.3) x10*3/uL Absolute Nucleated RBC (0.0-0.012) X10*3/uL Nucleated RBC % (auto) (0.0-0.2) /100WBC Sodium (135-145) mmol/L Potassium (3.3-5.1) mmol/L Chloride (96-108) mmol/L Carbon Dioxide (22-29) mmol/L Anion Gap (12-20) BUN (9-16) mg/dL Creatinine (0.5-1.4) mg/dL Estim Creat Clear Calc Estimated GFR Random Glucose (60-115) mg/dL Calcium (8.4-10.2) mg/dL Total Bilirubin (0.0-1.0) mg/dL AST (5-31) U/L ALT (0-31) U/L Alkaline Phosphatase (39-117) U/L Total Protein (6.5-8.0) g/dL Albumin (3.5-5.0) g/dL Lipase (8-78) U/L Beta HCG, Quant < 2 mIU/mL Urine Color Urine Appearance Urine pH (5.0-8.0) Ur Specific [place] (1.005-1.025) Urine Protein (NEG-TRACE) MG/DL Urine Glucose (UA) (NEG) MG/DL Urine Ketones (NEG) MG/DL Urine Blood (NEG) Urine Nitrite (NEG) Ur Leukocyte Esterase (NEG) Urine RBC (0) /HPF Urine WBC (0-4) /HPF Ur Squamous Epith Cells /LPF Urine Bacteria /LPF Critical Care Time Critical Care Time Critical Care Time: No Discharge Plan Discharge Clinical Impression: Encounter for assessment of STD exposure, Vaginal discharge, Abdominal pain Patient Disposition: Home, Self-Care Instructions: Abdominal Pain (ED), Vaginal Discharge (ED) Additional Instructions: Take your medications as prescribed. If you were prescribed antibiotics today, it is important that you take your medication to their entirety, do not skip any doses, do not finish them early. Follow-up with your primary care provider this week. Follow-up with OBGYN Return to the emergency department with new or worsening symptoms. Such as fevers, chills, chest pain, shortness of breath, nausea, vomiting, dizziness, headache, vision changes, lethargy In case of emergency call 911 You were treated here today with ceftriaxone, a medication that treats gonorrhea. I have sent to your pharmacy Metronidazole that covers trichomonas, and Doxycycline which covers for chlamydia. Please be reevaluated by a healthcare provider after completing your antibiotics. Do not stop them early, do not skip any doses. Until you are reevaluated by a health care provider please practice safe sex as disucussed. Please also have a conversation with your sexual partners.? I also advise you to obtain full panel STD testing to test for other STDs including HIV, Hepatitis B & C and syphilis with your PCP or a local clinic. Prescriptions: New doxycycline hyclate 100 mg capsule 100 mg PO BID 10 Days Qty: 20 0RF metronidazole 500 mg tablet 500 mg PO BID 7 Days Qty: 14 0RF No Action fluconazole [Diflucan] 150 mg tablet 150 mg PO Q3D Qty: 2 0RF Rx Instructions: may repeat second dose 72 hrs after first dose if symptoms persist doxycycline monohydrate 100 mg tablet 100 mg PO BID Qty: 14 0RF Vitamin Plus Low Iron 27 mg iron- 1 mg tablet 1 tab PO DAILY Referrals: Physician,None [Primary Care Provider] - 2 days Stand Alone Forms: Work/School Release
[2022-03-14] MEDS: cefTRIAXone sodium 500 MG, Lidocaine HCl 1 % MPF 1 ML IM (23:06)
[2022-03-14] MEDS: metroNIDAZOLE 500 MG TABLET PO (23:06)
--- NOTE | 2022-03-14 23:58 | PC.NURSE ---
wireless technician at bedside for labs.
[2022-03-15 00:04] LABS: MANUAL DIFF FLAG NO
[2022-03-15 00:06] LABS: Basophils Percent Auto 0.1 % (0-2); Eosinophils Absolute Auto 0.2 X10*3/uL (0.0-0.4); Eosinophils Percent Auto 1.3 % (0-4); Hematocrit 41.5 % (37.0-47.0); Hemoglobin 13.6 g/dl (12.0-16.0); Imm Gran Abs Auto 0.04 X10*3/uL (0.00-0.03); Imm Gran Pct Auto 0.3 % (0.0-0.4); Lymphocytes Absolute Auto 3.1 X10*3/uL (1.2-4.9); Lymphocytes Percent Auto 22.9 % (20-40); Mean Corpuscular HGB Conc 32.8 g/dl (31.0-35.0); Mean Corpuscular Hemoglobin 29.1 pg (27.0-33.0); Mean Corpuscular Volume 88.9 fL (80.0-98.0); Mean Platelet Volume 9.8 fL (9.4-12.3); Monocytes Percent Auto 7.4 % (2-11); Neutrophils Absolute Auto 9.1 x10*3/uL (2.0-8.3); Platelet Count 347 X10*3/uL (160-400); Red Blood Count 4.67 X10*6/uL (4.20-5.50); Red Cell Distribution Width 13.3 % (11.0-16.0); White Blood Count 13.4 X10*3/uL (4.8-10.8)
[2022-03-15 00:26] LABS: Alanine Aminotransferase 10 U/L (0-31); Albumin Level 4.7 g/dL (3.5-5.0); Alkaline Phosphatase 66 U/L (39-117); Anion Gap 14 (12-20); Aspartate Amino Transferase 12 U/L (5-31); Bilirubin Total 0.4 mg/dL (0.0-1.0); Blood Urea Nitrogen 15 mg/dL (9-16); Calcium 9.5 mg/dL (8.4-10.2); Carbon Dioxide 24 mmol/L (22-29); Chloride 105 mmol/L (96-108); Creatinine Clr Calc Pharmacy 111.9; Estimated Glomerular Filt Rate > 60; Glucose Random 78 mg/dL (60-115); Lipase 41 U/L (8-78); Potassium 4.1 mmol/L (3.3-5.1); Sodium 139 mmol/L (135-145); Total Protein 7.5 g/dL (6.5-8.0)
[2022-03-15 00:33] LABS: HCG Quantitative < 2 mIU/mL
--- NOTE | 2022-03-15 00:47 | PC.NURSE ---
Pt reports feeling nauseated after PO ABX. Pt provided with crackers and gingerale, awaiting CT.
--- NOTE | 2022-03-15 01:59 | PC.NURSE ---
Pt ambulating to CT with a steady gait.
[2022-03-15 03:22] VITALS: BP 132/80; PULSE 86; RESP 16; O2SAT 98
[2022-03-15 14:11] LABS: CT PCR DETECTED (Not Detect.); NG PCR DETECTED (Not Detect.)
== END 2022-03-15 03:23 | disposition home or self-care (01) ==
PROVIDERS: Physician Assistant; Emergency Provider Emergency Medicine
DX: Z20.2 Contact with and (suspected) exposure to infections with a predominantly sexual mode of transmission (principal); A74.9 Chlamydial infection, unspecified; A54.9 Gonococcal infection, unspecified; R10.9 Unspecified abdominal pain
CPT/HCPCS: 36415; 74176; 80053; 81001; 83690; 84702; 85025; 87491; 87591; 96372; 99283; 99284; J0696

== ENCOUNTER 2022-06-09 19:40 | Emergency (ER) | payer OTHER, SELFPAY ==
--- NOTE | ~2022-06-09 | CT_ITS ---
EXAMINATION: CT ABDOMEN AND PELVIS WITH CONTRAST CLINICAL INFORMATION: Right lower quadrant pain COMPARISON: 03/15/2022 TECHNIQUE: Multidetector volumetric images were obtained from the superior aspect of the liver through the pubic symphysis following administration 85 mL of Omnipaque 350 intravenous contrast. Sagittal and coronal reformatted images were obtained on the technologist's workstation. Oral contrast: No This CT examination was performed using dose optimization techniques as appropriate, variously including the following: *Automated exposure control *Adjustment of mA and/or kV according to patient size (this includes techniques or standardized protocols for targeted exams where dose is matched to indication/reason for exam; i.e. extremities or head) *Use of iterative reconstruction technique DLP: 500 mGy-cm FINDINGS: LUNG BASES: The visualized lung bases are unremarkable. LIVER, GALLBLADDER, AND BILIARY TREE: The liver is normal in size, shape, and attenuation. No focal hepatic lesion or biliary ductal dilatation is present. The gallbladder is unremarkable with no evidence of radiopaque gallstones, gallbladder wall thickening, or obvious pericholecystic inflammatory changes. PANCREAS: Unremarkable. SPLEEN: Unremarkable. ADRENAL GLANDS: Unremarkable. KIDNEYS AND URETERS: The kidneys are normal in size, shape, and attenuation. No hydronephrosis, hydroureter, or calculi seen. No perinephric stranding. BLADDER: Unremarkable. GASTROINTESTINAL TRACT: The small and large bowel are unremarkable. The appendix is unremarkable. ABDOMINAL WALL: No significant hernia is appreciated. LYMPH NODES: Normal. VASCULAR: Unremarkable. PELVIC VISCERA: Anteverted uterus. Right adnexal 3 cm simple appearing cyst. This is almost certainly benign with no specific follow-up recommended. OSSEOUS STRUCTURES: Unremarkable. CT/CT abdomen pelvis w IV con IMPRESSION: 1. No acute findings in the abdomen or pelvis. Normal appendix. 2. 3 cm right adnexal simple appearing cyst. This is almost certainly benign with no specific follow-up recommended. Fleischner guidelines were followed.
[2022-06-09 19:58] VITALS: BP 127/81; PULSE 68; RESP 18; TEMP 36.6; O2SAT 97; BMI 30.4
[2022-06-09 20:21] LABS: Appearance Urine Clear; Color Urine Yellow; Glucose Urine UA Negative (Negative); Leukocyte Esterase Urine Negative (Negative); Nitrite Urine Negative (Negative); PH 5.5 (5.0-9.0); Urine Blood Negative (Negative); Urine Ketones Negative (Negative); Urine Protein Negative (Neg-Trace)
[2022-06-09 20:38] LABS: MANUAL DIFF FLAG NO
[2022-06-09 20:41] LABS: Basophils Percent Auto 0.2 % (0-2); Eosinophils Absolute Auto 0.2 X10*3/uL (0.0-0.4); Eosinophils Percent Auto 1.4 % (0-4); Hematocrit 39.1 % (37.0-47.0); Hemoglobin 12.9 g/dl (12.0-16.0); Imm Gran Abs Auto 0.03 X10*3/uL (0.00-0.03); Imm Gran Pct Auto 0.3 % (0.0-0.4); Lymphocytes Absolute Auto 3.5 X10*3/uL (1.2-4.9); Lymphocytes Percent Auto 31.2 % (20-40); Mean Corpuscular Hemoglobin 29.3 pg (27.0-33.0); Mean Corpuscular Volume 88.9 fL (80.0-98.0); Mean Platelet Volume 9.4 fL (9.4-12.3); Monocytes Absolute Auto 0.8 X10*3/uL (0.1-1.2); Monocytes Percent Auto 6.6 % (2-11); Neutrophils Absolute Auto 6.8 x10*3/uL (2.0-8.3); Neutrophils Percent Auto 60.3 % (45-73); Platelet Count 341 X10*3/uL (160-400); Red Cell Distribution Width 12.1 % (11.0-16.0); White Blood Count 11.3 X10*3/uL (4.8-10.8)
[2022-06-09 20:54] LABS: Alanine Aminotransferase 7 U/L (0-31); Albumin Level 4.6 g/dL (3.5-5.0); Alkaline Phosphatase 59 U/L (39-117); Anion Gap 12 (12-20); Aspartate Amino Transferase 11 U/L (5-31); Bilirubin Total 0.3 mg/dL (0.0-1.0); Blood Urea Nitrogen 11 mg/dL (9-16); Carbon Dioxide 26 mmol/L (22-29); Chloride 107 mmol/L (96-108); Creatinine Clr Calc Pharmacy 114.8; Estimated Glomerular Filt Rate > 60; Glucose Random 85 mg/dL (60-115); Potassium 4.1 mmol/L (3.3-5.1); Sodium 141 mmol/L (135-145); Total Protein 7.4 g/dL (6.5-8.0)
--- NOTE | 2022-06-10 | ED.ABDPAIN ---
HPI - Abdominal Pain General Chief Complaint: Abdominal Pain Stated Complaint: Abd pain Time Seen by Provider: 06/09/22 23:59 Source: patient Mode of arrival: ambulatory Limitations: no limitations History of Present Illness MD elicited complaint: abdominal pain Pertinent past history: none Onset (ago): day(s) (7) Pain Consistency: intermittent Location: RLQ Severity: moderate Quality: sharp Migration to: no migration Exacerbating factors: movement Relieving factors: nothing Context: other (3 weeks completed G+C treatment partener as well but they had sex during treatment) Associated symptoms: denies other symptoms Related Data Home Medications Medication Instructions Recorded Confirmed vitamin with calcium 1 tab PO DAILY 01/20/21 no.72-iron 27 mg-folic acid 1 mg tablet Previous Rx's Medication Instructions Recorded fluconazole 150 mg tablet 150 mg PO Q3D 2 doses #2 tabs 02/01/22 (Diflucan) doxycycline monohydrate 100 mg 100 mg PO BID #14 tabs 02/04/22 tablet doxycycline hyclate 100 mg capsule 100 mg PO BID 10 days #20 caps 03/14/22 metronidazole 500 mg tablet 500 mg PO BID 7 days #14 tabs 03/14/22 ibuprofen 600 mg tablet 600 mg PO Q6H PRN pain #30 tabs 06/10/22 ondansetron 4 mg disintegrating 4 mg PO Q8H PRN nausea and 06/10/22 tablet vomiting #20 tabs Allergies Allergy/AdvReac Type Severity Reaction Status Date / Time No Known Allergies Allergy Verified 03/14/22 19:47 Review of Systems Review of Systems Constitutional : No Weight loss, No Fever, No Chills ENT/Mouth : No sore throat, No Rhinorrhea Eyes: No Swelling, No Redness Cardiovascular : No Chest Pain, No SOB, NoEdema Respiratory : No Cough, No Sputum, No Wheezing Gastrointestinal :no Nausea, no Vomiting, no Diarrhea, positive abdominal Pain, No Hematochezia, No Melena Genitourinary : No Dysuria, No Urinary Frequency, No Hematuria, No Urgency Musculoskeletal : No joint pain, No Myalgias, No Joint Swelling Skin : No Skin Lesions, No rash Neuro : No Weakness, No Numbness, No Dizziness, No Headache Psych : No Anxiety/Panic, No Depression Heme/Lymph: No Bruising, No Lymphadenopathy Endocrine : No Polyuria, No Polydipsia All other systems reviewed and are negative. [facility] Past Medical History Attestation statement: The following information was validated with the patient. Medical History (Updated 06/10/22 @ 01:32 by Johanny Hernandez DO) No known health problems Surgical History (Updated 06/10/22 @ 00:15 by Johanny Hernandez DO) History of section Social History Social History (Updated 06/10/22 @ 00:07 by Johanny Hernandez DO) Alcohol intake: never Patient Tobacco Use Status: Never used Tobacco Advance Directives: No Advance Directives Information Provided: No Physical Exam ED Vital Signs: Vital Signs - 24 hr 06/09/22 19:58 Temperature 97.9 F Pulse Rate 68 Respiratory Rate 18 Blood Pressure 127/81 Pulse Oximetry 97 Oxygen Delivery Method Room Air BMI result Body Mass Index 30.4 Appearance: Alert. Oriented X3. No acute distress. Eyes: Pupils equal, round and reactive to light. ENT: Pharynx normal. Neck: Normal inspection. Neck supple. CVS: Normal heart rate and rhythm. Pulses normal. Respiratory: No respiratory distress. Breath sounds normal. Abdomen: Soft and moderate RLQ ttp no rebound or guarding Skin: Skin warm and dry. Normal skin color. Normal skin turgor. Extremities: No lower extremity edema. No calf ttp Neuro: Oriented X 3. No motor deficit. No sensory deficit. MDM - Abdominal Pain MDM Narrative Medical decision making narrative: 22 yo female with RLQ pain for the past week. Just treated for G+C 3 weeks ago but her and her partner had sex during the treatment. At this time c/o RLQ pain will need labs, CT scan to evaluate appendix, ovarian pathology - cyst vs TOA though she looks well at this time. Dispo per results and findings. Lab Data Result diagrams: 06/09/22 20:33 06/09/22 20:33 Labs: Lab Results 06/09/22 06/09/22 06/09/22 Range/Units 20:13 20:13 20:33 WBC 11.3 H (4.8-10.8) X10*3/uL RBC 4.40 (4.20-5.50) X10*6/uL Hgb 12.9 (12.0-16.0) g/dl Hct 39.1 (37.0-47.0) % MCV 88.9 (80.0-98.0) fL MCH 29.3 (27.0-33.0) pg MCHC 33.0 (31.0-35.0) g/dl RDW 12.1 (11.0-16.0) % Plt Count 341 (160-400) X10*3/uL MPV 9.4 (9.4-12.3) fL Immature Gran % (Auto) 0.3 (0.0-0.4) % Neut % (Auto) 60.3 (45-73) % Lymph % (Auto) 31.2 (20-40) % [place] % (Auto) 6.6 (2-11) % Eos % (Auto) 1.4 (0-4) % Baso % (Auto) 0.2 (0-2) % Lymph # (Auto) 3.5 (1.2-4.9) X10*3/uL [place] # (Auto) 0.8 (0.1-1.2) X10*3/uL Eos # (Auto) 0.2 (0.0-0.4) X10*3/uL Baso # (Auto) 0.0 (0.0-0.2) X10*3/uL Abs Immat Gran (auto) 0.03 (0.00-0.03) X10*3/uL Absolute Neuts (auto) 6.8 (2.0-8.3) x10*3/uL Absolute Nucleated RBC 0.000 (0.0-0.012) X10*3/uL Nucleated RBC % (auto) 0.0 (0.0-0.2) /100WBC Sodium (135-145) mmol/L Potassium (3.3-5.1) mmol/L Chloride (96-108) mmol/L Carbon Dioxide (22-29) mmol/L Anion Gap (12-20) BUN (9-16) mg/dL Creatinine (0.5-1.4) mg/dL Estim Creat Clear Calc Estimated GFR Random Glucose (60-115) mg/dL Calcium (8.4-10.2) mg/dL Total Bilirubin (0.0-1.0) mg/dL AST (5-31) U/L ALT (0-31) U/L Alkaline Phosphatase (39-117) U/L Total Protein (6.5-8.0) g/dL Albumin (3.5-5.0) g/dL Lipase (8-78) U/L Urine Color Yellow Urine Appearance Clear Urine pH 5.5 (5.0-9.0) Ur Specific [place] 1.010 (1.005-1.025) Urine Protein Negative (Neg-Trace) mg/dL Urine Glucose (UA) Negative (Negative) mg/dL Urine Ketones Negative (Negative) mg/dL Urine Blood Negative (Negative) Urine Nitrite Negative (Negative) Ur Leukocyte Esterase Negative (Negative) Urine Test NEGATIVE (NEGATIVE) 06/09/22 Range/Units 20:33 WBC (4.8-10.8) X10*3/uL RBC (4.20-5.50) X10*6/uL Hgb (12.0-16.0) g/dl Hct (37.0-47.0) % MCV (80.0-98.0) fL MCH (27.0-33.0) pg MCHC (31.0-35.0) g/dl RDW (11.0-16.0) % Plt Count (160-400) X10*3/uL MPV (9.4-12.3) fL Immature Gran % (Auto) (0.0-0.4) % Neut % (Auto) (45-73) % Lymph % (Auto) (20-40) % [place] % (Auto) (2-11) % Eos % (Auto) (0-4) % Baso % (Auto) (0-2) % Lymph # (Auto) (1.2-4.9) X10*3/uL [place] # (Auto) (0.1-1.2) X10*3/uL Eos # (Auto) (0.0-0.4) X10*3/uL Baso # (Auto) (0.0-0.2) X10*3/uL Abs Immat Gran (auto) (0.00-0.03) X10*3/uL Absolute Neuts (auto) (2.0-8.3) x10*3/uL Absolute Nucleated RBC (0.0-0.012) X10*3/uL Nucleated RBC % (auto) (0.0-0.2) /100WBC Sodium 141 (135-145) mmol/L Potassium 4.1 (3.3-5.1) mmol/L Chloride 107 (96-108) mmol/L Carbon Dioxide 26 (22-29) mmol/L Anion Gap 12 (12-20) BUN 11 (9-16) mg/dL Creatinine 0.69 (0.5-1.4) mg/dL Estim Creat Clear Calc 114.8 Estimated GFR > 60 Random Glucose 85 (60-115) mg/dL Calcium 10.0 (8.4-10.2) mg/dL Total Bilirubin 0.3 (0.0-1.0) mg/dL AST 11 (5-31) U/L ALT 7 (0-31) U/L Alkaline Phosphatase 59 (39-117) U/L Total Protein 7.4 (6.5-8.0) g/dL Albumin 4.6 (3.5-5.0) g/dL Lipase 33 (8-78) U/L Urine Color Urine Appearance Urine pH (5.0-9.0) Ur Specific [place] (1.005-1.025) Urine Protein (Neg-Trace) mg/dL Urine Glucose (UA) (Negative) mg/dL Urine Ketones (Negative) mg/dL Urine Blood (Negative) Urine Nitrite (Negative) Ur Leukocyte Esterase (Negative) Urine Test (NEGATIVE) Discharge Plan Discharge Clinical Impression: Abdominal pain Qualifiers: Abdominal location: right lower quadrant Qualified Code(s): R10.31 - Right lower quadrant pain Ovarian cyst Qualifiers: Laterality: right Qualified Code(s): N83.201 - Unspecified ovarian cyst, right side Patient Disposition: Home, Self-Care Instructions: Ovarian Cyst (ED), Abdominal Pain (ED) Additional Instructions: return to ED for any worsening symptoms or concerns 3cm simple ovarian cyst - motrin or tylenol for pain repeat Ultrasound in 4 to 6 weeks no other acute findings if positive STD testing will call you at home in 3 days Prescriptions: New ibuprofen 600 mg tablet 600 mg PO Q6H PRN (Reason: pain) Qty: 30 0RF ondansetron 4 mg tablet,disintegrating 4 mg PO Q8H PRN (Reason: nausea and vomiting) Qty: 20 0RF No Action doxycycline hyclate 100 mg capsule 100 mg PO BID 10 Days Qty: 20 0RF metronidazole 500 mg tablet 500 mg PO BID 7 Days Qty: 14 0RF fluconazole [Diflucan] 150 mg tablet 150 mg PO Q3D Qty: 2 0RF Rx Instructions: may repeat second dose 72 hrs after first dose if symptoms persist doxycycline monohydrate 100 mg tablet 100 mg PO BID Qty: 14 0RF Vitamin Plus Low Iron 27 mg iron- 1 mg tablet 1 tab PO DAILY
--- OUTSIDE RECORDS SUMMARY | 2022-06-10 00:04 | XMS_ITS | Continuity of Care Document ---
:2000 Author Organization [facility] Address [address] [place] [address], [facility] Floor [address] [place] [id number]- Care Team Providers Name Role Phone Not on Staff, PCP Primary Care Physician Unavailable Encounter [facility] [place] Date(s): 05/24/20 - 05/31/20 [facility] [address] [place] [address], [facility] Floor [address] [place] [phone]- [facility] Attending Physician: Jenise Sullivan MD Referring Physician: Earline Cohen MD Allergies, Adverse Reactions, Alerts Substance Reaction Severity Status NKA Active Medications amitriptyline 10 mg oral tablet 30 mg, 3, tablet, By Mouth, Daily at bedtime, # 90 tablet, Refills 11, Tot. Refills 11, Maintenance,11/20/15 12:19:09, Route to Pharmacy Electronically, [id number], [facility]/pharmacy #[id number] Start Date: 11/20/15 Status: OrderedApri 0.15 mg-0.03 mg oral tablet 1 tablet, By Mouth, Daily, Start taking after day 3 labs, take one pill for 21 days of the active tablets, then skip placebos, and start the next pack, # 2 pack/packet, 0 Refills, Maintenance, 04/24/2014:44:00 EDT, [id number], 1 tablet By Mo... Start Date: 04/24/20 Status: Ordereddoxycycline hyclate 100 mg oral capsule 1 tablet, By Mouth, 2 times a day, Start 2 days before HSG procedure, may take with food to minimizeabdominal discomfort, # 10 tablet, 0 Refills, Maintenance, 04/24/20 14:44:00 EDT, [id number], 155, cm, 01/26/20 15:08:00 EDT, Height Start Date: 04/24/20 Stop Date: 04/29/20 Status: OrderedNexplanon = 68 mg, Subcutaneous Infusion, Once, 0 Refills, Maintenance, 11/20/15 11:30:26 Start Date: 11/20/15 Status: OrderedPrenatal Multivitamins with Folic Acid 1 mg oral tablet 1 tablet, By Mouth, Daily, # 90 tablet, 4 Refills, Maintenance, 05/28/20 16:00:00 EDT, [id number], 1 tablet By Mouth Daily, 155, cm, 05/28/20 13:12:00 EDT, Height Start Date: 05/28/20 Status: OrderedPrenatal Multivitamins with Folic Acid 1 mg oral tablet 1 tablet, By Mouth, Daily, # 90 tablet, 4 Refills, Maintenance, 05/28/20 14:04:00 EDT, [id number], 1 tablet By Mouth Daily, 155, cm, 05/28/20 13:12:00 EDT, Height Start Date: 05/28/20 Status: Ordered Problem List Condition Effective Dates Status Health Status Informant Occipital neuralgia(Confirmed) Active Social History Social History Type Response Smoking Status Never smoker entered on: 11/20/15 Sex
--- OUTSIDE RECORDS SUMMARY | 2022-06-10 00:04 | XMS_ITS | Continuity of Care Document ---
:2000 Author Organization [facility] Address [address], 4th Floor [address] [place] [phone]- Care Team Providers Name Role Phone Not on Staff, PCP Primary Care Physician Unavailable En[place] [facility] [place](s[place] 01/30/20 - 02/29/20 [facility] [address], 4th Floor [address] [place] [id number]- [facility] Attending Physician: Brooklynn Onofre Admitting Physician: Brooklynn Onofre Referring Physician: AdmtrBrooklynn Allergies, Adverse Reactions, Alerts Substance Reaction Severity Status NKA Active Medications amitriptyline 10 mg oral tablet 30 mg, 3, tablet, By Mouth, Daily at bedtime, # 90 tablet, Refills 11, Tot. Refills 11, Maintenance,11/20/15 12:19:09, Route to Pharmacy Electronically, [id number], [facility]/pharmacy #[id number] Start Date: 11/20/15 Status: OrderedNexplanon = 68 mg, Subcutaneous Infusion, Once, 0 Refills, Maintenance, 11/20/15 11:30:26 Start Date: 11/20/15 Status: Ordered Problem List Condition Effective Dates Status Health Status Informant Occipital neuralgia(Confirmed) Active Social History Social History Type Response Smoking Status Never smoker entered on: 11/20/15 Sex
--- OUTSIDE RECORDS SUMMARY | 2022-06-10 00:04 | XMS_ITS | Continuity of Care Document ---
:2000 Author Organization [facility] Address [address] [place] [address], [facility] Floor [address] [place] [phone]- Care Team Providers Name Role Phone Not on Staff, PCP Primary Care Physician Unavailable Encounter [facility] [place] Date(s): 05/28/20 - 06/04/20 [facility] [address] [place] [address], [facility] Floor [address] [place] [address]- [facility] Attending Physician: Earline Cohen MD Allergies, Adverse Reactions, Alerts Substance Reaction Severity Status NKA Active Medications amitriptyline 10 mg oral tablet 30 mg, 3, tablet, By Mouth, Daily at bedtime, # 90 tablet, Refills 11, Tot. Refills 11, Maintenance,11/20/15 12:19:09, Route to Pharmacy Electronically, [id number], [facility]/pharmacy #[id number] Start Date: 11/20/15 Status: [...] Status Health Status Informant Occipital neuralgia(Confirmed) Active Vital Signs Most recent to oldest [Reference Range]: 1 Height 155 cm (05/28/20 1:12 PM) Weight 72.3 kg (05/28/20 1:12 PM) Pulse Rate [55-90 bpm] 72 bpm (05/28/20 1:12 PM) Body Mass Index [18.5-24.99] 30.09 *>HHI* (05/28/20 1:12 PM) Blood Pressure [90-138/55-84 mm Hg] 133/80 mm Hg (05/28/20 1:12 PM) Blood pressure sites Arm, right (05/28/20 1:12 PM) Weight Obtained Via Standing scale (05/28/20 1:12 PM) Social History Social History Type Response Smoking Status Never smoker entered on: 11/20/15 Sex
--- OUTSIDE RECORDS SUMMARY | 2022-06-10 00:04 | XMS_ITS | Continuity of Care Document ---
:2000 Author Organization [facility] Address [address] [place] [address], 4th Floor [address] [place] [phone]- Care Team Providers Name Role Phone Not on Staff, PCP Primary Care Physician Unavailable Encounter [facility] [place] Date(s): 01/30/20 - 02/06/20 [facility] [address] [place] [address], [address]th Floor [address] [place] [phone]- [facility] Attending Physician: Earline Cohen MD Referring Physician: Not on Staff, Referring MD Allergies, Adverse Reactions, Alerts Substance Reaction Severity Status NKA Active Medications amitriptyline 10 mg oral tablet 30 mg, 3, tablet, By Mouth, Daily at bedtime, # 90 tablet, Refills 11, Tot. Refills 11, Maintenance,11/20/15 12:19:09, Route to Pharmacy Electronically, [id number], [facility]/pharmacy #[id number] Start Date: 11/20/15 Status: OrderedNexplanon = 68 mg, Subcutaneous Infusion, Once, 0 Refills, Maintenance, 11/20/15 11:30:26 Start Date: 11/20/15 Status: Ordered Problem List Condition Effective Dates Status Health Status Informant Occipital neuralgia(Confirmed) Active Vital Signs Most recent to oldest [Reference Range]: 1 Height 155 cm (01/26/20 3:08 PM) Social History Social History Type Response Smoking Status Never smoker entered on: 11/20/15 Sex
--- OUTSIDE RECORDS SUMMARY | 2022-06-10 00:05 | XMS_ITS | Continuity of Care Document ---
:2000 Author Organization [facility] Address [address] [place] [address], [facility] Floor [address] [place] [address]- Care Team Providers Name Role Phone Not on Staff, PCP Primary Care Physician Unavailable [place] [facility] [place] 07/22/20 [facility] [address] [place] [address], [facility] Floor [address] [place] [address] Attending Physician: Not on Staff, Attending MD Referring Physician: Earline Cohen MD Allergies, Adverse Reactions, Alerts Substance Reaction Severity Status NKA Active Medications amitriptyline 10 mg oral tablet 30 mg, 3, tablet, By Mouth, Daily at bedtime, # 90 tablet, Refills 11, Tot. Refills 11, Maintenance,11/20/15 12:19:09, Route to Pharmacy Electronically, [id number], [facility]/pharmacy #[id number] Start Date: 11/20/15 Status: OrderedApri 0.15 mg-0.03 mg oral tablet 1 tablet, By Mouth, Daily, Start taking after day 3 labs, take one pill for 21 days of the active tablets, then skip placebos, and start the next pack, # 2 pack/packet, 0 Refills, Maintenance, 04/24/2014:44:00 EDT, [facility]/pharmacy #[id number], 1 tablet By Mo... Start Date: 04/24/20 Status: Ordereddoxycycline hyclate 100 mg oral capsule 1 tablet, By Mouth, 2 times a day, Start 2 days before HSG procedure, may take with food to minimizeabdominal discomfort, # 10 tablet, 0 Refills, Maintenance, 04/24/20 14:44:00 EDT, [id number], 155, cm, 01/26/20 15:08:00 EDT, Height Start Date: 04/24/20 Stop Date: 04/29/20 Status: Orderedletrozole 2.5 mg oral tablet 1 tablet = 2.5 mg, By Mouth, Daily, day 3-7 of cycle, # 5 tablet, 3 Refills, Maintenance, 06/12/20 9:29:00 EDT, [id number], 155, cm, 05/28/20 13:12:00 EDT, Height Start Date: 06/12/20 Status: OrderedNexplanon = 68 mg, Subcutaneous Infusion, Once, 0 Refills, Maintenance, 11/20/15 11:30:26 Start Date: 11/20/15 Status: Orderedovidrel 250mcg prefilled syringe ovidrel 250mcg prefilled syringe, 1 prefilled syringe, Subcutaneous Injection, Once, # 1 each, Refills 5, Tot. Refills 5, Soft Stop, 06/12/20 9:30:00 EDT, Supply, 155, cm, 05/28/20 13:12:00 EDT, Height Start Date: 06/12/20 Status: OrderedPrenatal Multivitamins with Folic Acid 1 [...]
--- OUTSIDE RECORDS SUMMARY | 2022-06-10 00:05 | XMS_ITS | Continuity of Care Document ---
:2000 Author Organization [facility] Address [address] [place] [address], 4th Floor [address] [place] [phone]- Care Team Providers Name Role Phone Not on Staff, PCP Primary Care Physician Unavailable Encounter [facility] [place] Date(s): 06/22/20 - 07/22/20 [facility] [address] [place] [address], [facility] Floor [address] [place] [id number]- Attending Physician: Brooklynn Onofre Admitting Physician: AdmtrBrooklynn Referring Physician: Admtr, Ar8 Allergies, Adverse Reactions, Alerts Substance Reaction Severity Status NKA Active Medications amitriptyline 10 mg oral tablet 30 mg, 3, tablet, By Mouth, Daily at bedtime, # 90 tablet, Refills 11, Tot. Refills 11, Maintenance,11/20/15 12:19:09, Route to Pharmacy Electronically, [id number], [facility]/pharmacy #[id number] Start Date: 11/20/15 Status: OrderedApri 0.15 mg-0.03 mg oral tablet 1 tablet, By Mouth, Daily, Start taking after day 3 labs, take one pill for 21 days of the active tablets, then skip placebos, and start the next pack, # 2 pack/packet, 0 Refills, Maintenance, 04/24/2014:44:00 EDT, [facility]/pharmacy #[id number], 1 tablet By Mo... Start Date: 04/24/20 Status: Ordereddoxycycline hyclate 100 mg oral capsule 1 tablet, By Mouth, 2 times a day, Start 2 days before HSG procedure, may take with food to minimizeabdominal discomfort, # 10 tablet, 0 Refills, Maintenance, 04/24/20 14:44:00 EDT, [facility]/pharmacy #[id number], 155, cm, 01/26/20 15:08:00 EDT, Height [...]
--- OUTSIDE RECORDS SUMMARY | 2022-06-10 00:05 | XMS_ITS | Continuity of Care Document ---
:2000 Author Organization [facility] Address [address] [place] [address], [facility] Floor [address] [place] [phone]- Care Team Providers Name Role Phone Not on Staff, PCP Primary Care Physician Unavailable Encounter [facility] Date(s): 04/24/20 - 05/24/20 [facility] [address] [place] [address], [facility] Floor [address] [place] [phone]- [facility] Allergies, Adverse Reactions, Alerts Substance Reaction Severity Status NKA Active Medications amitriptyline 10 mg oral tablet 30 mg, 3, tablet, By Mouth, Daily at bedtime, # 90 tablet, Refills 11, Tot. Refills 11, Maintenance,11/20/15 12:19:09, Route to Pharmacy Electronically, [id number], [facility]/pharmacy #[id number] Start Date: 11/20/15 Status: OrderedApri 0.15 mg-0.03 mg oral tablet 1 tablet, By Mouth, Daily, Start taking after day 3 labs, take one pill for 21 days of the active tablets, then skip placebos, and start the next pack, # 2 pack/packet, 0 Refills, Maintenance, 04/24/2014:44:00 EDT, [facility]/pharmacy #[id number], 1 tablet By Mo... Start Date: 04/24/20 Status: Ordereddoxycycline hyclate 100 mg oral capsule 1 tablet, By Mouth, 2 times a day, Start 2 days before HSG procedure, may take with food to minimizeabdominal discomfort, # 10 tablet, 0 Refills, Maintenance, 04/24/20 14:44:00 EDT, [facility]/pharmacy #[id number], 155, cm, 01/26/20 15:08:00 EDT, [...]
[2022-06-10 00:15] LABS: UPreg QC Valid YES; Urine Pregnancy NEGATIVE (NEGATIVE)
[2022-06-10 00:23] LABS: Lipase 33 U/L (8-78)
[2022-06-10] MEDS: Ketorolac Tromethamine 15 MG/ML VIAL IVPUSH (00:41)
[2022-06-10] MEDS: iohexoL 350 MG/ML 100 ML INFUS..BTL 85 ML IV (01:18)
== END 2022-06-10 01:45 | disposition home or self-care (01) ==
PROVIDERS: Emergency Provider Emergency Medicine
DX: N83.201 Unspecified ovarian cyst, right side (principal); R10.31 Right lower quadrant pain; Z79.899 Other long term (current) drug therapy
CPT/HCPCS: 36415; 74177; 80053; 81003; 81025; 83690; 85025; 96374; 99283; 99284; J1885; Q9967